=== PATIENT | male | born 1990 | race Caucasian/White ===

== ENCOUNTER → 2022-12-13 | Outpatient (CLI) | payer OTHER ==
[2022-12-13 18:51] LABS: BASOPHILS ABSOLUTE AUTO 0.06 K/mm3 (0.00-0.23); BASOPHILS PERCENT AUTO 1 % (0-2); EOSINOPHILS ABSOLUTE AUTO 0.09 K/mm3 (0.00-0.68); EOSINOPHILS PERCENT AUTO 1 % (0-6); Hematocrit 44.6 % (37.0-53.0); Hemoglobin 15.2 g/dL (13.5-17.5); IMMATURE GRAN ABSOLUTE AUTO 0.02 K/mm3 (0.00-0.10); IMMATURE GRAN PERCENT AUTO 0 % (0-1); LYMPHOCYTES ABSOLUTE AUTO 3.43 K/mm3 (0.84-5.20); LYMPHOCYTES PERCENT AUTO 44 % (21-46); MONOCYTES ABSOLUTE AUTO 0.37 K/mm3 (0.16-1.47); MONOCYTES PERCENT AUTO 5 % (4-13); Mean Corpuscular HGB 30.2 pg (26.0-34.0); Mean Corpuscular HGB Conc 34.1 g/dL (31.5-36.5); Mean Corpuscular Volume 89 fL (80-100); Mean Platelet Volume 10.2 fL (9.1-12.4); NEUTROPHILS ABSOLUTE AUTO 3.87 K/mm3 (1.96-9.15); NEUTROPHILS PERCENT AUTO 49 % (41-73); Platelet Count 361 K/mm3 (150-400); RDW Coefficient Variation 13.1 % (11.7-14.2); RDW Standard Deviation 42.4 fL (35.1-46.3); Red Blood Cell Count 5.03 M/mm3 (4.30-5.90); White Blood Cell Count 7.84 K/mm3 (4.00-11.30)
[2022-12-13 19:39] LABS: International Normalized Ratio 0.99; Prothrombin Time Results 10.4 Sec (9.7-11.5)
== END | disposition home or self-care (01) ==
LOC: LAB 18:46 → LAB SHORT 18:46
PROVIDERS: Emergency Medicine
DX: R04.0 Epistaxis (principal)
CPT/HCPCS: 85025; 85610; 85730

== ENCOUNTER 2025-07-19 10:54 | Emergency (ER) | payer OTHER ==
[~2025-07-19] VITALS: Ht 185.4 cm; Wt 99.8 kg
[2025-07-19] MEDS ORDERED: Ondansetron HCl 2 MG / ML 2ML Vial IV PRN (11:30)
[2025-07-19] MEDS ORDERED: Ketorolac Tromethamine 15mg Vial IV ONE (11:35)
[2025-07-19] MEDS ORDERED: NS 1,000 ML IV SCH (11:35)
[2025-07-19 11:39] LABS: BASOPHILS ABSOLUTE AUTO 0.02 K/mm3 (0.00-0.23); BASOPHILS PERCENT AUTO 0 % (0-2); EOSINOPHILS ABSOLUTE AUTO 0.00 K/mm3 (0.00-0.68); EOSINOPHILS PERCENT AUTO 0 % (0-6); Hematocrit 42.6 % (37.0-53.0); Hemoglobin 14.4 g/dL (13.5-17.5); IMMATURE GRAN ABSOLUTE AUTO 0.01 K/mm3 (0.00-0.10); IMMATURE GRAN PERCENT AUTO 0 % (0-1); LYMPHOCYTES ABSOLUTE AUTO 0.54 K/mm3 (0.84-5.20); LYMPHOCYTES PERCENT AUTO 7 % (21-46); MONOCYTES ABSOLUTE AUTO 0.51 K/mm3 (0.16-1.47); MONOCYTES PERCENT AUTO 7 % (4-13); Mean Corpuscular HGB Conc 33.8 g/dL (31.5-36.5); Mean Corpuscular Volume 85 fL (80-100); NEUTROPHILS ABSOLUTE AUTO 6.62 K/mm3 (1.96-9.15); NEUTROPHILS PERCENT AUTO 86 % (41-73); NRBC ABSOLUTE 0.00 K/mm3 (0.00-0.02); NRBC Auto 0.0 /100 WBC (0.0-0.2); Platelet Count 235 K/mm3 (150-400); RDW Coefficient Variation 13.0 % (11.7-14.2); RDW Standard Deviation 39.7 fL (35.1-46.3)
[2025-07-19 11:47] LABS: Source, Urine Clean Catch
[2025-07-19 12:00] LABS: Bilirubin, Urine Neg (Neg); Color, Urine Yellow (P-Yellow); Glucose Qualitative, Urine Neg (Neg); Ketones, Urine 2+ (Neg); Leukocyte Esterase, Urine 1+ (Neg); Protein, Urine 1+ (Neg); Specific Gravity, Urine 1.020 (1.003-1.022); Urobilinogen, Urine NORM (Normal)
[2025-07-19 12:11] LABS: Alanine Aminotransfer (ALT/SGP 29.0 U/L (12-78); Albumin, Blood 4.2 g/dL (3.4-5.0); Albumin/Globulin Ratio 1.1 (0.8-1.8); Anion Gap 11.0 mmol/L (3-11); Aspartate Aminotrans (AST/SGOT 21.0 U/L (12-37); Bilirubin, Total 0.9 mg/dL (0.1-1.0); Blood Urea Nitrogen 11.0 mg/dL (8-24); CO2, Blood 24.0 mmol/L (21-32); Calcium, Blood 8.6 mg/dL (8.5-10.1); Chloride, Blood 103.0 mmol/L (98-108); Creatinine, Blood 1.06 mg/dL (0.60-1.20); Globulin, Blood 3.8 g/dL (2.2-4.0); Glucose, Blood 120.0 mg/dL (70-99); Potassium, Blood 3.5 mmol/L (3.5-5.5); Sodium, Blood 134.0 mmol/L (136-145); Total Protein, Blood 8.0 g/dL (6.4-8.2)
[2025-07-19] MEDS ORDERED: FentaNYL Citrate 50 MCG/ML 2 ML Injection IV ONE (13:15)
[2025-07-19] MEDS ORDERED: VENL25 PO (13:38)
[2025-07-19 14:19] VITALS: BP 132/85
[2025-07-20] MEDS ORDERED: ONDA4ODT MM (05:10)
== END 2025-07-19 14:19 | disposition home or self-care (01) ==
LOC: ER 10:54
PROVIDERS: Emergency Medicine
DX: N39.0 Urinary tract infection, site not specified (principal); Z59.89 Other problems related to housing and economic circumstances; Z88.8 Allergy status to other drugs, medicaments and biological substances; Z79.899 Other long term (current) drug therapy
CPT/HCPCS: 74177; 80053; 81001; 85025; 87086; 96361; 96374-59; 96375; 99284-25; J1885; J3010; J7030; Q9967

== ENCOUNTER 2025-07-20 01:33 | Emergency (ER) | payer OTHER ==
[~2025-07-20] VITALS: Ht 185.4 cm; Wt 99.8 kg
[~2025-07-20 01:33] MED LIST: VENL25 PO
[2025-07-20] MEDS ORDERED: Ondansetron HCl 2 MG / ML 2ML Vial IV PRN (02:40)
[2025-07-20 02:52] LABS: BASOPHILS ABSOLUTE AUTO 0.03 K/mm3 (0.00-0.23); BASOPHILS PERCENT AUTO 1 % (0-2); EOSINOPHILS ABSOLUTE AUTO 0.01 K/mm3 (0.00-0.68); EOSINOPHILS PERCENT AUTO 0 % (0-6); Hematocrit 41.0 % (37.0-53.0); Hemoglobin 13.9 g/dL (13.5-17.5); IMMATURE GRAN ABSOLUTE AUTO 0.01 K/mm3 (0.00-0.10); IMMATURE GRAN PERCENT AUTO 0 % (0-1); LYMPHOCYTES ABSOLUTE AUTO 0.76 K/mm3 (0.84-5.20); LYMPHOCYTES PERCENT AUTO 12 % (21-46); MONOCYTES ABSOLUTE AUTO 0.58 K/mm3 (0.16-1.47); MONOCYTES PERCENT AUTO 9 % (4-13); Mean Corpuscular HGB Conc 33.9 g/dL (31.5-36.5); Mean Corpuscular Volume 85 fL (80-100); NEUTROPHILS ABSOLUTE AUTO 5.20 K/mm3 (1.96-9.15); NEUTROPHILS PERCENT AUTO 79 % (41-73); NRBC ABSOLUTE 0.00 K/mm3 (0.00-0.02); NRBC Auto 0.0 /100 WBC (0.0-0.2); Platelet Count 234 K/mm3 (150-400); RDW Coefficient Variation 12.9 % (11.7-14.2); RDW Standard Deviation 40.0 fL (35.1-46.3)
[2025-07-20 03:18] LABS: Alanine Aminotransfer (ALT/SGP 27.0 U/L (12-78); Albumin, Blood 3.8 g/dL (3.4-5.0); Albumin/Globulin Ratio 1.0 (0.8-1.8); Anion Gap 10.0 mmol/L (3-11); Aspartate Aminotrans (AST/SGOT 25.0 U/L (12-37); Bilirubin, Total 0.4 mg/dL (0.1-1.0); Blood Urea Nitrogen 11.0 mg/dL (8-24); CO2, Blood 23.0 mmol/L (21-32); Calcium, Blood 8.9 mg/dL (8.5-10.1); Chloride, Blood 105.0 mmol/L (98-108); Creatinine, Blood 1.07 mg/dL (0.60-1.20); Globulin, Blood 3.9 g/dL (2.2-4.0); Glucose, Blood 130.0 mg/dL (70-99); Potassium, Blood 3.5 mmol/L (3.5-5.5); Sodium, Blood 134.0 mmol/L (136-145); Total Protein, Blood 7.7 g/dL (6.4-8.2)
[2025-07-20 03:28] LABS: Influenza A, PCR NEGATIVE (NEGATIVE); Influenza B, PCR NEGATIVE (NEGATIVE); Resp Syncytial Virus, PCR NEGATIVE (NEGATIVE); SARS-Cov-2 (COVID-19) PCR, MMC NEGATIVE (NEGATIVE)
[2025-07-20 04:19] LABS: Source, Urine Clean Catch
[2025-07-20 04:34] LABS: Bilirubin, Urine Neg (Neg); Glucose Qualitative, Urine Neg (Neg); Ketones, Urine 2+ (Neg); Leukocyte Esterase, Urine Neg (Neg); Protein, Urine 2+ (Neg); Specific Gravity, Urine 1.020 (1.003-1.022); Urobilinogen, Urine NORM (Normal)
[2025-07-20 04:58] LABS: Color, Urine Yellow (P-Yellow)
[2025-07-20 04:59] LABS: Red Blood Cells, Urine 0-2 /hpf (0-2); White Blood Cells, Urine 0-2 /hpf (0-5)
[2025-07-20] MEDS ORDERED: ONDA4ODT MM (05:10)
[2025-07-20 05:19] VITALS: BP 131/73
[2025-07-21] MEDS ORDERED: CEFD300 (18:46)
[2025-07-21] MEDS ORDERED: ONDA4ODT MM (20:32)
== END 2025-07-20 05:19 | disposition home or self-care (01) ==
LOC: ER 01:33
PROVIDERS: Student in an Organized Health Care Education/Training Program
DX: R11.2 Nausea with vomiting, unspecified (principal); Z87.440 Personal history of urinary (tract) infections; Z87.442 Personal history of urinary calculi; Z88.8 Allergy status to other drugs, medicaments and biological substances
CPT/HCPCS: 80053; 81001; 83690; 85025; 87637; 96374; 99283-25; J2405

== ENCOUNTER 2025-07-20 21:42 | Emergency (ER) | payer OTHER ==
[~2025-07-20] VITALS: Ht 185.4 cm; Wt 99.8 kg
[~2025-07-20 21:42] MED LIST changes: +ONDA4ODT MM
[2025-07-20 22:05] LABS: BASOPHILS ABSOLUTE AUTO 0.04 K/mm3 (0.00-0.23); BASOPHILS PERCENT AUTO 0 % (0-2); EOSINOPHILS ABSOLUTE AUTO 0.01 K/mm3 (0.00-0.68); EOSINOPHILS PERCENT AUTO 0 % (0-6); Hematocrit 41.7 % (37.0-53.0); Hemoglobin 13.9 g/dL (13.5-17.5); IMMATURE GRAN ABSOLUTE AUTO 0.02 K/mm3 (0.00-0.10); IMMATURE GRAN PERCENT AUTO 0 % (0-1); LYMPHOCYTES ABSOLUTE AUTO 0.93 K/mm3 (0.84-5.20); LYMPHOCYTES PERCENT AUTO 7 % (21-46); MONOCYTES ABSOLUTE AUTO 1.27 K/mm3 (0.16-1.47); MONOCYTES PERCENT AUTO 10 % (4-13); Mean Corpuscular HGB Conc 33.3 g/dL (31.5-36.5); Mean Corpuscular Volume 87 fL (80-100); NEUTROPHILS ABSOLUTE AUTO 10.92 K/mm3 (1.96-9.15); NEUTROPHILS PERCENT AUTO 83 % (41-73); NRBC ABSOLUTE 0.00 K/mm3 (0.00-0.02); NRBC Auto 0.0 /100 WBC (0.0-0.2); Platelet Count 249 K/mm3 (150-400); RDW Coefficient Variation 13.1 % (11.7-14.2); RDW Standard Deviation 42.2 fL (35.1-46.3)
[2025-07-20 22:21] LABS: Alanine Aminotransfer (ALT/SGP 28.0 U/L (12-78); Albumin, Blood 3.9 g/dL (3.4-5.0); Albumin/Globulin Ratio 1.0 (0.8-1.8); Anion Gap 8.0 mmol/L (3-11); Aspartate Aminotrans (AST/SGOT 27.0 U/L (12-37); Bilirubin, Total 0.4 mg/dL (0.1-1.0); Blood Urea Nitrogen 11.0 mg/dL (8-24); CO2, Blood 26.0 mmol/L (21-32); Calcium, Blood 9.0 mg/dL (8.5-10.1); Chloride, Blood 105.0 mmol/L (98-108); Creatinine, Blood 1.18 mg/dL (0.60-1.20); Globulin, Blood 4.0 g/dL (2.2-4.0); Glucose, Blood 132.0 mg/dL (70-99); Potassium, Blood 3.4 mmol/L (3.5-5.5); Sodium, Blood 136.0 mmol/L (136-145); Total Protein, Blood 7.9 g/dL (6.4-8.2)
[2025-07-20] MEDS ORDERED: Ketorolac Tromethamine 15mg Vial IV ONE (22:45)
[2025-07-20] MEDS ORDERED: Ondansetron HCl 2 MG / ML 2ML Vial IV ONE (22:45)
[2025-07-20 23:00] VITALS: BP 108/85
[2025-07-21] MEDS ORDERED: CEFD300 (18:46)
[2025-07-21] MEDS ORDERED: ONDA4ODT MM (20:32)
== END 2025-07-20 23:40 | disposition home or self-care (01) ==
LOC: ER 21:42
PROVIDERS: Student in an Organized Health Care Education/Training Program
DX: R11.2 Nausea with vomiting, unspecified (principal); R10.30 Lower abdominal pain, unspecified; Z87.440 Personal history of urinary (tract) infections; Z79.2 Long term (current) use of antibiotics; Z88.8 Allergy status to other drugs, medicaments and biological substances; Z79.899 Other long term (current) drug therapy
CPT/HCPCS: 80053; 85025; 96361; 96374; 96375; 99283-25; J1885; J2405; J7120

== ENCOUNTER 2025-07-21 18:01 | Emergency (ER) | payer OTHER ==
[~2025-07-21] VITALS: Ht 185.4 cm; Wt 99.8 kg
[2025-07-21 18:42] VITALS: BP 140/102
[2025-07-21] MEDS ORDERED: CEFD300 (18:46)
[2025-07-21] MEDS ORDERED: ONDA4ODT MM (20:32)
== END 2025-07-21 23:39 | disposition home or self-care (01) ==
LOC: ER 18:01
DX: N39.0 Urinary tract infection, site not specified (principal); Z88.8 Allergy status to other drugs, medicaments and biological substances; Z79.2 Long term (current) use of antibiotics
CPT/HCPCS: 99282

== ENCOUNTER 2025-08-27 09:09 | Emergency (ER) | payer OTHER ==
[~2025-08-27] VITALS: Ht 188 cm; Wt 95.2 kg
[~2025-08-27 09:09] MED LIST changes: +CEFD300
[2025-08-27] MEDS ORDERED: Ketorolac Tromethamine 30mg Vial IV ONE (10:05)
[2025-08-27] MEDS ORDERED: FentaNYL Citrate 50 MCG/ML 2 ML Injection IV ONE (10:05)
[2025-08-27] MEDS ORDERED: Ondansetron HCl 2 MG / ML 2ML Vial IV ONE (10:05)
[2025-08-27 10:23] LABS: BASOPHILS ABSOLUTE AUTO 0.08 K/mm3 (0.00-0.23); BASOPHILS PERCENT AUTO 0 % (0-2); EOSINOPHILS ABSOLUTE AUTO 0.02 K/mm3 (0.00-0.68); EOSINOPHILS PERCENT AUTO 0 % (0-6); Hematocrit 46.6 % (37.0-53.0); Hemoglobin 15.8 g/dL (13.5-17.5); IMMATURE GRAN ABSOLUTE AUTO 0.07 K/mm3 (0.00-0.10); IMMATURE GRAN PERCENT AUTO 0 % (0-1); LYMPHOCYTES ABSOLUTE AUTO 1.50 K/mm3 (0.84-5.20); LYMPHOCYTES PERCENT AUTO 8 % (21-46); MONOCYTES ABSOLUTE AUTO 0.43 K/mm3 (0.16-1.47); MONOCYTES PERCENT AUTO 2 % (4-13); Mean Corpuscular HGB Conc 33.9 g/dL (31.5-36.5); Mean Corpuscular Volume 85 fL (80-100); NEUTROPHILS ABSOLUTE AUTO 16.02 K/mm3 (1.96-9.15); NEUTROPHILS PERCENT AUTO 88 % (41-73); NRBC ABSOLUTE 0.00 K/mm3 (0.00-0.02); NRBC Auto 0.0 /100 WBC (0.0-0.2); Platelet Count 356 K/mm3 (150-400); RDW Coefficient Variation 12.9 % (11.7-14.2); RDW Standard Deviation 39.8 fL (35.1-46.3)
[2025-08-27 10:44] LABS: Alanine Aminotransfer (ALT/SGP 38.0 U/L (12-78); Albumin, Blood 4.8 g/dL (3.4-5.0); Albumin/Globulin Ratio 1.1 (0.8-1.8); Anion Gap 12.0 mmol/L (3-11); Aspartate Aminotrans (AST/SGOT 31.0 U/L (12-37); Bilirubin, Total 0.4 mg/dL (0.1-1.0); Blood Urea Nitrogen 16.0 mg/dL (8-24); CO2, Blood 23.0 mmol/L (21-32); Calcium, Blood 9.6 mg/dL (8.5-10.1); Chloride, Blood 103.0 mmol/L (98-108); Creatinine, Blood 1.11 mg/dL (0.60-1.20); Globulin, Blood 4.2 g/dL (2.2-4.0); Glucose, Blood 150.0 mg/dL (70-99); Potassium, Blood 3.8 mmol/L (3.5-5.5); Sodium, Blood 134.0 mmol/L (136-145); Total Protein, Blood 9.0 g/dL (6.4-8.2)
[2025-08-27 12:14] LABS: Source, Urine Clean Catch
[2025-08-27 12:19] LABS: Bilirubin, Urine Neg (Neg); Color, Urine Yellow (P-Yellow); Glucose Qualitative, Urine Neg (Neg); Ketones, Urine Neg (Neg); Leukocyte Esterase, Urine 1+ (Neg); Protein, Urine 2+ (Neg); Specific Gravity, Urine 1.015 (1.003-1.022); Urobilinogen, Urine NORM (Normal)
[2025-08-27 12:29] LABS: White Blood Cells, Urine 0-2 /hpf (0-5)
[2025-08-27 12:30] LABS: Red Blood Cells, Urine 0-2 /hpf (0-2)
[2025-08-27] MEDS ORDERED: HYDROmorphone HCl/Pf 1MG SYR IV ONE (13:20)
[2025-08-27] MEDS ORDERED: TAMS.4ER PO (15:56)
[2025-08-27] MEDS ORDERED: HYDR1TAB94 PO (15:56)
[2025-08-27] MEDS ORDERED: ONDA4ODT MM (15:56)
[2025-08-27] MEDS ORDERED: IBUP600 PO (15:56)
[2025-08-27 16:10] VITALS: BP 143/98
== END 2025-08-27 16:11 | disposition home or self-care (01) ==
LOC: ER 09:09
PROVIDERS: Student in an Organized Health Care Education/Training Program
DX: N13.2 Hydronephrosis with renal and ureteral calculous obstruction (principal); Z87.442 Personal history of urinary calculi; Z88.8 Allergy status to other drugs, medicaments and biological substances; Z79.899 Other long term (current) drug therapy
CPT/HCPCS: 74177; 80053; 81001; 83690; 85025; 87086; 96374-59; 96375; 99284-25; J1171; J1885; J2405; J3010; Q9967